=== PATIENT | female | born 1985 | race Caucasian/White ===

== ENCOUNTER 2016-12-08 12:19 | Emergency (ER) | payer SELFPAY ==
--- NOTE | 2016-12-08 12:34 | ER Document Report ---
ED Medical Screen (RME) - General Stated Complaint: ABDOMINAL PAIN Notes: night, vomiting and lethargy- resolved by monday stomach cramping that started last night, admits to nausea. patient is s/a with BF and does not use protection. LMP 10/07/16 I have greeted and performed a rapid initial assessment of this patient. A comprehensive ED assessment and evaluation of the patient, analysis of test results and completion of the medical decision making process will be conducted by additional ED providers. - Related Data Allergies/Adverse Reactions: Penicillins Allergy (Verified 12/08/16 12:35)
[2016-12-08 12:57] LABS: ABSOLUTE BASOPHILS # (AUTO) 0.1 10^3/uL (0.0-0.2); ABSOLUTE EOSINOPHILS # (AUTO) 0.2 10^3/uL (0.0-0.6); ABSOLUTE LYMPHOCYTES (AUTO) 2.2 10^3/uL (0.5-4.7); ABSOLUTE MONOCYTES (AUTO) 0.6 10^3/uL (0.1-1.4); ABSOLUTE NEUT (AUTO) 6.5 10^3/uL (1.7-8.2); BASOPHILS % (AUTO) 0.5 % (0-2); EOSINOPHILS % (AUTO) 2.4 % (0-6); HEMATOCRIT 36.4 % (36.0-47.0); HEMOGLOBIN 12.1 g/dL (12.0-15.5); HGB HCT DIFFERENCE -0.1; LYMPHOCYTES % (AUTO) 23.3 % (13-45); MEAN CORPUSCULAR HEMOGLOBIN 27.4 pg (27.0-33.4); MEAN CORPUSCULAR HGB CONC 33.2 g/dL (32.0-36.0); MEAN CORPUSCULAR VOLUME 82 fl (80-97); MONOCYTES % (AUTO) 6.1 % (3-13); RED BLOOD COUNT 4.42 10^6/uL (3.72-5.28); RED CELL DISTRIBUTION WIDTH 13.4 % (11.5-14.0); SEGMENTED NEUTROPHILS % (AUTO) 67.7 % (42-78); WHITE BLOOD COUNT 9.7 10^3/uL (4.0-10.5)
[2016-12-08 13:04] LABS: APPEARANCE,URINE CLEAR; BILIRUBIN,URINE NEGATIVE (NEGATIVE); GLUCOSE, URINE NEGATIVE (NEGATIVE); KETONES,URINE NEGATIVE (NEGATIVE); LEUKOCYTE ESTERASE,URINE NEGATIVE (NEGATIVE); NITRITE,URINE NEGATIVE (NEGATIVE); PROTEIN,URINE NEGATIVE (NEGATIVE); URINE SPECIFIC GRAVITY 1.001; UROBILINOGEN,URINE NEGATIVE mg/dL (<2.0)
[2016-12-08 13:09] LABS: ALANINE AMINOTRANSFERASE 55 U/L (9-52); ALBUMIN 3.9 g/dL (3.5-5.0); ALKALINE PHOSPHATASE 98 U/L (38-126); ANION GAP 12 (5-19); ASPARTATE AMINO TRANSFERASE 36 U/L (14-36); BILIRUBIN,TOTAL 0.4 mg/dL (0.2-1.3); BLOOD UREA NITROGEN 8 mg/dL (7-20); CALCIUM 9.2 mg/dL (8.4-10.2); CARBON DIOXIDE 24 mmol/L (22-30); CHLORIDE 104 mmol/L (98-107); CREATININE RESULT 0.62 mg/dL (0.52-1.25); GLUCOSE 100 mg/dL (75-110); LIPASE 232.9 U/L (23-300); POTASSIUM 4.5 mmol/L (3.6-5.0); SODIUM 139.8 mmol/L (137-145); TOTAL PROTEIN 7.6 g/dL (6.3-8.2)
[2016-12-08] MEDS ORDERED: NORMAL SALINE 1000 ML 2,000 ML IV ONE (14:34)
[2016-12-08] MEDS ORDERED: ONDANSETRON 4 MG TAB.RAPDIS PO ONE (14:48)
[2016-12-08] MEDS ORDERED: MORPHINE SULFATE 10 MG/ML INJ IV ONE (16:14)
[2016-12-08] MEDS ORDERED: METOCLOPRAMIDE HCL INJ/PF 10 MG/2 ML SDV IV ONE (16:14)
--- NOTE | 2016-12-08 16:25 | ER Document Report ---
Addendum entered and electronically signed by CIERRA MONTES DE OCA PA 12/08/16 20:42: Course - Re-evaluation Re-evalutation: 12/08/16 20:39 On reevaluation patient is well-appearing, abdominal exam is unremarkable with only very mild generalized tenderness, no guarding. CT of the abdomen and pelvis with IV and oral contrast was performed and reviewed, this shows mild retroperitoneal adenopathy, mild splenomegaly, no emergent concerning abnormalities. I did discuss the findings with patient in detail, patient was provided with a copy of this, patient states that she has plans to follow-up with primary care after she receives her insurance, states she will follow-up for monitoring and additional workup of these findings. Most likely these findings are secondary to patient's recent illness, patient will be treated symptomatically at this time, patient advised of return precautions in detail, patient states understanding and agreement. Patient is very well-appearing at discharge, requesting to leave so she can eat because she states she is hungry. - Vital Signs Vital signs: Temp Pulse Resp BP Pulse Ox 97.7 F 70 20 136/91 H 99 12/08/16 12:36 12/08/16 12:36 12/08/16 12:36 12/08/16 12:36 12/08/16 12:36 - Laboratory Result Diagrams: 12/08/16 12:45 12/08/16 12:25 Laboratory results interpreted by me: 12/08/16 12:25 ALT 55 H Addendum entered and electronically signed by CIERRA MONTES DE OCA PA 12/08/16 20:39: Discharge - Discharge Clinical Impression: Abdominal pain Qualifiers: Abdominal location: periumbilical Qualified Code(s): R10.33 - Periumbilical pain Condition: Good Disposition: HOME, SELF-CARE Additional Instructions: No surgical or emergent abnormality is noted on your workup or imaging. Imaging shows some swollen lymph nodes and a slightly enlarged spleen, this is most likely because of your recent illness, however this should be followed by additional monitoring by primary care. Please take your imaging report with you and follow-up with primary care. Take Phenergan for nausea, take Pepcid for upper abdominal symptoms, take the pain medication [place] if needed for pain. Please return to the emergency department immediately for any concerning or worsening symptoms including uncontrollable vomiting, abdominal swelling, severe abdominal pain, etc. Prescriptions: Famotidine [Pepcid 20 mg Tablet] 20 mg PO BID #14 tablet Hydrocodone/Acetaminophen [[place] 5-325 mg Tablet] 1 - 2 tab PO ASDIR #12 tablet Promethazine HCl [Phenergan 25 mg Tablet] 1 - 2 tab PO Q6H PRN #20 tablet PRN Reason: Forms: Return to Work Original Note: ED GI/ - General Chief Complaint: Abdominal Pain Stated Complaint: ABDOMINAL PAIN Time seen by provider: 14:40 Mode of Arrival: Ambulatory Information source: Patient Notes: 31-year-old female complaining of left pelvic lower quadrant pain which was worse when she sat. Last night it was very sharp in the evening then she went to sleep. when she woke up this morning she was having superior periUmbilical burning pain, vomit once. No fever. She does have nausea with the pain. No dysuria frequency or urgency. She had a normal bowel movement this morning without blood or black discoloration History of partial cholecystectomy 2 years ago. She had pain in the right upper quadrant one year ago and was told that she had a stone. No chest pain or shortness of breath. No history of Crohn's, colitis, or diverticulitis. The labs have already been resulted before I walked in the room and they're negative including a lipase. Last week she had vomiting illness but was well sat-monday. TRAVEL OUTSIDE OF THE [place] IN LAST 30 DAYS: No - Related Data Allergies/Adverse Reactions: Penicillins Allergy (Verified 12/08/16 12:35) Past Medical History - General Information source: Patient - Social History Smoking Status: Never Smoker Chew tobacco use (# tins/day): No Frequency of alcohol use: None Drug Abuse: None Lives with: Parents Family History: Reviewed & Not Pertinent Patient has suicidal ideation: No Patient has homicidal ideation: No Renal/ Medical History: Denies: Hx Peritoneal Dialysis Past Surgical History: Reports: Hx Cholecystectomy - Partial, left some of it there and states it is still functioning - Immunizations Hx Diphtheria, Pertussis, Tetanus Vaccination: Yes Review of Systems - Review of Systems Constitutional: No symptoms reported EENT: No symptoms reported Cardiovascular: No symptoms reported Respiratory: No symptoms reported Gastrointestinal: See HPI Genitourinary: No symptoms reported Female Genitourinary: No symptoms reported Musculoskeletal: No symptoms reported Skin: No symptoms reported Hematologic/Lymphatic: No symptoms reported Neurological/Psychological: No symptoms reported Physical Exam - Vital signs Vitals: Temp Pulse Resp BP Pulse Ox 97.7 F 70 20 136/91 H 99 12/08/16 12:36 12/08/16 12:36 12/08/16 12:36 12/08/16 12:36 12/08/16 12:36 Interpretation: Normal - General General appearance: Appears well, Alert In distress: None - HEENT Head: Normocephalic, Atraumatic Eyes: Normal Conjunctiva: Normal Pupils: PERRL Tympanic membrane: Normal Mucous membranes: Normal Pharynx: Normal Neck: Supple. No: Lymphadenopathy - Respiratory Respiratory status: No respiratory distress Chest status: Nontender Breath sounds: Normal Chest palpation: Normal - Cardiovascular Rhythm: Regular Heart sounds: Normal auscultation Murmur: No - Abdominal Inspection: Normal Distension: No distension Bowel sounds: Normal Tenderness: Tender - superior periumbilical. No: Guarding, Rebound Organomegaly: No organomegaly. No: Hepatomegaly, Splenomegaly - Back Back: Normal, Nontender. No: CVA tenderness - Extremities General upper extremity: Normal inspection, Nontender, Normal color, Normal ROM , Normal temperature General lower extremity: Normal inspection, Nontender, Normal color, Normal ROM , Normal temperature, Normal weight bearing. No: Bc's sign - Neurological Neuro grossly intact: Yes Cognition: Normal Orientation: AAOx4 [place] Coma Scale Eye Opening: Spontaneous [place] Coma Scale Verbal: Oriented Jose Roberto Coma Scale Motor: Obeys Commands [place] Coma Scale Total: 15 Speech: Normal Motor strength normal: LUE, RUE, LLE, RLE Sensory: Normal - Psychological Associated symptoms: Normal affect, Normal mood - Skin Skin Temperature: Warm Skin Moisture: Dry Skin Color: Normal Course - Re-evaluation Re-evalutation: 12/08/16 16:20 I have consulted with the supervisory physician per [facility] Guidelines., dr. mcknight. OK to order the CT scan, pt and spouse were wanting imaging to figue out what this is.. She continues to hurt, IV fluid did not help. Tender superior periumbilical and LLQ. - Vital Signs Vital signs: Temp Pulse Resp BP Pulse Ox 97.7 F 70 20 136/91 H 99 12/08/16 12:36 12/08/16 12:36 12/08/16 12:36 12/08/16 12:36 12/08/16 12:36 - Laboratory Result Diagrams: 12/08/16 12:45 12/08/16 12:25 Laboratory results interpreted by me: 12/08/16 12:25 ALT 55 H - Transfer of Care Care transferred to following provider: Alessandro GAITAN at 1900. Report at the bedside. Discharge - Discharge Clinical Impression: Abdominal pain Qualifiers: Abdominal location: periumbilical Qualified Code(s): R10.33 - Periumbilical pain Condition: Good Disposition: HOME, SELF-CARE
[2016-12-08] MEDS ORDERED: HYDROCODONE/ACETAMINOPHEN 5-325 MG 6 TAB/DSPK PO PRN (20:35)
[2016-12-08 21:32] VITALS: BP 122/72
== END 2016-12-08 20:50 | disposition home or self-care (01) ==
LOC: ER 12:19
DX: R10.33 Periumbilical pain (principal)
CPT/HCPCS: 99284; 96374; 96375; 36415; 83690; 85025; 81025; 80053; 81001; 74177; S0119; J2765; J2270; J7030

== ENCOUNTER 2017-09-18 07:13 | Emergency (ER) | payer BC ==
[2017-09-18 07:22] VITALS: BP 139/86
[2017-09-18] MEDS ORDERED: LIDOCAINE 2% VISCOUS SOLN 20 ML UDCUP PO ONE (08:20)
[2017-09-18] MEDS ORDERED: MAG HYDROX/AL HYDROX/SIMETH SUSP 30 ML UDCUP PO ONE (08:20)
[2017-09-18] MEDS ORDERED: METOCLOPRAMIDE HCL INJ/PF 10 MG/2 ML SDV IV ONE (08:20)
[2017-09-18 09:02] LABS: ABSOLUTE BASOPHILS # (AUTO) 0.1 10^3/uL (0.0-0.2); ABSOLUTE EOSINOPHILS # (AUTO) 0.1 10^3/uL (0.0-0.6); ABSOLUTE LYMPHOCYTES (AUTO) 2.3 10^3/uL (0.5-4.7); ABSOLUTE MONOCYTES (AUTO) 0.6 10^3/uL (0.1-1.4); ABSOLUTE NEUT (AUTO) 11.2 10^3/uL (1.7-8.2); BASOPHILS % (AUTO) 0.4 % (0-2); EOSINOPHILS % (AUTO) 0.5 % (0-6); HEMATOCRIT 43.8 % (36.0-47.0); HEMOGLOBIN 15.1 g/dL (12.0-15.5); HGB HCT DIFFERENCE 1.5; LYMPHOCYTES % (AUTO) 15.9 % (13-45); MEAN CORPUSCULAR HGB CONC 34.4 g/dL (32.0-36.0); MEAN CORPUSCULAR VOLUME 84 fl (80-97); MONOCYTES % (AUTO) 4.4 % (3-13); RED BLOOD COUNT 5.21 10^6/uL (3.72-5.28); RED CELL DISTRIBUTION WIDTH 14.4 % (11.5-14.0); SEGMENTED NEUTROPHILS % (AUTO) 78.8 % (42-78); WHITE BLOOD COUNT 14.2 10^3/uL (4.0-10.5)
[2017-09-18 09:50] LABS: ANION GAP 14 (5-19); BLOOD UREA NITROGEN 10 mg/dL (7-20); CALCIUM 9.4 mg/dL (8.4-10.2); CARBON DIOXIDE 26 mmol/L (22-30); CHLORIDE 101 mmol/L (98-107); CREATININE RESULT 0.68 mg/dL (0.52-1.25); GLUCOSE 137 mg/dL (75-110); POTASSIUM 3.8 mmol/L (3.6-5.0)
[2017-09-18 09:51] LABS: AMORPHOUS SEDIMENT,URINE TRACE /HPF; APPEARANCE,URINE CLOUDY; BILIRUBIN,URINE NEGATIVE (NEGATIVE); GLUCOSE, URINE NEGATIVE (NEGATIVE); KETONES,URINE NEGATIVE (NEGATIVE); LEUKOCYTE ESTERASE,URINE NEGATIVE (NEGATIVE); NITRITE,URINE NEGATIVE (NEGATIVE); PROTEIN,URINE NEGATIVE (NEGATIVE); URINE SPECIFIC GRAVITY 1.017; UROBILINOGEN,URINE NEGATIVE mg/dL (<2.0)
[2017-09-18 09:51] LABS: ALANINE AMINOTRANSFERASE 53 U/L (9-52); ALBUMIN 4.8 g/dL (3.5-5.0); ALKALINE PHOSPHATASE 110 U/L (38-126); ASPARTATE AMINO TRANSFERASE 50 U/L (14-36); BILIRUBIN,DIRECT 0.4 mg/dL (0.0-0.4); BILIRUBIN,TOTAL 0.6 mg/dL (0.2-1.3)
[2017-09-18 09:52] LABS: LIPASE 91.2 U/L (23-300); TOTAL PROTEIN 8.7 g/dL (6.3-8.2)
[2017-09-18] MEDS ORDERED: MORPHINE SULFATE 10 MG/ML INJ IV ONE ×2 (10:01→11:50)
--- NOTE | 2017-09-18 11:17 | RADIOLOGY REPORT (SQ) ---
EXAM DESCRIPTION: CT ABD/PELVIS WITH IV ONLY COMPLETED DATE/TIME: 09/18/2017 10:46 am REASON FOR STUDY: LUQ pain COMPARISON: 12/08/2016 TECHNIQUE: CT scan of the abdomen and pelvis performed using helical scanning technique with dynamic intravenous contrast injection. No oral contrast. Images reviewed with lung, soft tissue, and bone windows. Reconstructed coronal and sagittal MPR images reviewed. Delayed images for evaluation of the urinary system also acquired. All images stored on PACS. All CT scanners at this facility use dose modulation, iterative reconstruction, and/or weight based d osing when appropriate to reduce radiation dose to as low as reasonably achievable (ALARA). [facility]: Dose Right [facility]: CareDose [facility]: Dose Right [facility]: Teradose 4D [facility]: [email or web address] CONTRAST TYPE AND DOSE: contrast/concentration: Isovue 370.00 mg/ml; Total Contrast Delivered: 100.0 ml; Total Saline Delivered: 72.0 ml RENAL FUNCTION: Creatinine 0.7 BUN 10 RADIATION DOSE: Up-to-date CT equipment and radiation dose reduction techniques were employed. CTDIv ol: 17.4 - 20.0 mGy. DLP: 2100 mGy-cm.. LIMITATIONS: None. FINDINGS: LOWER CHEST: No significant findings. No nodules or infiltrates. LIVER: Normal size. No masses. No dilated ducts. SPLEEN: Normal size. No focal lesions. PANCREAS: No masses. No significant calcifications. No adjacent inflammation or peripancreatic fluid collections. Pancreatic duct not dilated. GALLBLADDER: Surgically absent. ADRENAL GLANDS: No significant masses or asymmetry. RIGHT KIDNEY AND URETER: No solid masses. No significant calcifications. No hydronephrosis or hyd roureter. LEFT KIDNEY AND URETER: No solid masses. No significant calcifications. No hydronephrosis or hydr oureter. AORTA AND VESSELS: No aneurysm. No dissection. Renal arteries, SMA, celiac without stenosis. RETROPERITONEUM: There is mild periaortic adenopathy. This appears to be stable. BOWEL AND PERITONEAL CAVITY: There are diverticula scattered through the colon, most numerous in kaur sverse colon. No acute inflammatory changes are seen APPENDIX: Normal. PELVIS: No mass. No free fluid. Normal bladder. ABDOMINAL WALL: No masses. No hernias. BONES: No significant or acute findings. OTHER: No other significant finding. IMPRESSION: 1. Diverticulosis coli. 2. Mild periaortic adenopathy that is stable. 3. There are no findings that explain the patient's pain. TECHNICAL DOCUMENTATION: JOB ID: [id number] Quality ID # [id number]: Final reports with documentation of one or more dose reduction techniques (e.g., Au tomated exposure control, adjustment of the mA and/or kV according to patient size, use of iterative reconstruction technique) 2010 [employer]- All Rights Reserved
--- NOTE | 2017-09-18 11:49 | ER Document Report ---
ED General - General Chief Complaint: Abdominal Pain Stated Complaint: ABDOMINAL PAIN Time Seen by Provider: 09/18/17 07:36 Mode of Arrival: Ambulatory Information source: Patient, Relative Notes: 32-year-old female history of gastric reflux ulcers presents with complaints of left upper quadrant abdominal pain. Patient notes she is on Nexium denies any fevers or chills denies any diarrhea. Patient does admit to nausea vomiting. Patient denies any pain anywhere else except the left upper quadrant, she denies a history of pancreatitis TRAVEL OUTSIDE OF THE [place] IN LAST 30 DAYS: No - HPI Onset: Just prior to arrival Onset/Duration: Sudden Quality of pain: No pain Severity: Mild Pain Level: 1 Associated symptoms: Nausea, Vomiting Exacerbated by: Denies Relieved by: Denies Similar symptoms previously: Yes Recently seen / treated by doctor: No - Related Data Allergies/Adverse Reactions: Penicillins Allergy (Verified 12/08/16 12:35) Past Medical History - Social History Smoking Status: Never Smoker Cigarette use (# per day): No Chew tobacco use (# tins/day): No Smoking Education Provided: No Family History: Reviewed & Not Pertinent Renal/ Medical History: Denies: Hx Peritoneal Dialysis Past Surgical History: Reports: Hx Cholecystectomy - Partial, left some of it there and states it is still functioning - Immunizations Hx Diphtheria, Pertussis, Tetanus Vaccination: Yes Review of Systems - Review of Systems Notes: REVIEW OF SYSTEMS: CONSTITUTIONAL : Denies fever, chills, or sweats. Denies recent illness. EENT: Denies eye, ear, throat, or mouth pain or symptoms. Denies nasal or sinus congestion or discharge. Denies throat, tongue, or mouth swelling or difficulty swallowing. CARDIOVASCULAR: Denies chest pain. Denies palpitations or racing or irregular heart beat. Denies ankle edema. RESPIRATORY: Denies cough, cold, or chest congestion. Denies shortness of breath, difficulty breathing, or wheezing. GASTROINTESTINAL: abd pain left upepr quadrant GENITOURINARY: Denies difficulty urinating, painful urination, burning, frequency, blood in urine, or discharge. FEMALE GENITOURINARY: Denies vaginal bleeding, heavy or abnormal periods, irregular periods. Denies vaginal discharge or odor. MUSCULOSKELETAL: Denies back or neck pain or stiffness. Denies joint pain or swelling. SKIN: Denies rash, lesions or sores. HEMATOLOGIC : Denies easy bruising or bleeding. LYMPHATIC: Denies swollen, enlarged glands. NEUROLOGICAL: Denies confusion or altered mental status. Denies passing out or loss of consciousness. Denies dizziness or lightheadedness. Denies headache. Denies weakness or paralysis or loss of use of either side. Denies problems with gait or speech. Denies sensory loss, numbness, or tingling. Denies seizures. PSYCHIATRIC: Denies anxiety or stress. Denies depression, suicidal ideation, or homicidal ideation. ALL OTHER SYSTEMS REVIEWED AND NEGATIVE. PHYSICAL EXAMINATION: GENERAL: Well-appearing, well-nourished and in mild distress HEAD: Atraumatic, normocephalic. EYES: Pupils equal round and reactive to light, extraocular movements intact, conjunctiva are normal. ENT: Nares patent, oropharynx clear without exudates. Moist mucous membranes. NECK: Normal range of motion, supple without lymphadenopathy LUNGS: Breath sounds clear to auscultation bilaterally and equal. No wheezes rales or rhonchi. HEART: Regular rate and rhythm without murmurs ABDOMEN: Soft,tender i nthe LUQ , no rebound or guarding Female : deferred Musculoskeletal: Normal range of motion, no pitting or edema. No cyanosis. NEUROLOGICAL: Cranial nerves grossly intact. Normal speech, normal gait. Normal sensory, motor exams PSYCH: Normal mood, normal affect. SKIN: Warm, Dry, normal turgor, no rashes or lesions noted. Dictation was performed using [employer] voice recognition software Physical Exam - Vital signs Vitals: Temp Pulse Resp BP Pulse Ox 97.4 F 57 L 20 139/86 H 100 09/18/17 07:17 09/18/17 07:17 09/18/17 07:17 09/18/17 07:17 09/18/17 07:17 Course - Re-evaluation Re-evalutation: 09/18/17 16:49 patietns labs and imaging noted no significant abnormality, pt given pain control nausea control and resting comfortably, I did watch her in the ED for a few hours and noted she was able to hydrate. ct noted diverticulitis which was reported to the patient Patient and family member happy with discharge After performing a Medical Screening Examination, I estimate there is LOW risk for ACUTE APPENDICITIS, BOWEL OBSTRUCTION, ACUTE CHOLECYSTITIS, PERFORATED DIVERTICULITIS, INCARCERATED HERNIA, PANCREATITIS, PELVIC INFLAMMATORY DISEASE, PERFORATED ULCER, ECTOPIC , or TUBO-OVARIAN ABSCESS, thus I consider the discharge disposition reasonable. Also, there is no evidence or peritonitis , sepsis, or toxicity. I have reevaluated this patient multiple times and no significant life threatening changes are noted. The patient and I have discussed the diagnosis and risks, and we agree with discharging home with close follow-up with the understanding that symptoms and presentations can change. We also discussed returning to the Emergency Department immediately if new or worsening symptoms occur. We have discussed the symptoms which are most concerning (e.g., bloody stool, fever, changing or worsening pain, vomiting) that necessitate immediate return. - Vital Signs Vital signs: Temp Pulse Resp BP Pulse Ox 97.4 F 57 L 20 139/86 H 100 09/18/17 07:17 09/18/17 07:17 09/18/17 07:17 09/18/17 07:17 09/18/17 07:17 - Laboratory Result Diagrams: 09/18/17 08:52 09/18/17 08:52 Laboratory results interpreted by me: 09/18/17 09/18/17 09/18/17 08:52 08:52 09:10 WBC 14.2 H RDW 14.4 H Seg Neutrophils % 78.8 H Absolute Neutrophils 11.2 H Glucose 137 H AST 50 H ALT 53 H Total Protein 8.7 H Urine Blood SMALL H - Diagnostic Test Radiology reviewed: Image reviewed, Reports reviewed - diverticulosis Discharge - Discharge Clinical Impression: Abdominal pain Qualifiers: Abdominal location: left upper quadrant Qualified Code(s): R10.12 - Left upper quadrant pain Nausea & vomiting Qualifiers: Vomiting type: unspecified Vomiting Intractability: non-intractable Qualified Code(s): R11.2 - Nausea with vomiting, unspecified Condition: Stable Disposition: HOME, SELF-CARE Instructions: Abdominal Pain ([facility]) Prescriptions: Famotidine [Pepcid 20 mg Tablet] 20 mg PO DAILY #30 tablet Hydrocodone/Acetaminophen [[place] 5-325 mg Tablet] 1 tab PO Q6 #14 tablet Metoclopramide HCl [Reglan 10 mg Tablet] 1 - 2 tab PO ASDIR PRN #25 tablet PRN Reason: Forms: Return to Work Referrals: ARIANNA MANUEL MD [ACTIVE STAFF] - Follow up tomorrow
== END 2017-09-18 12:25 | disposition home or self-care (01) ==
LOC: ER 07:13
DX: R10.12 Left upper quadrant pain (principal); R11.2 Nausea with vomiting, unspecified; Z88.0 Allergy status to penicillin; Z90.49 Acquired absence of other specified parts of digestive tract
CPT/HCPCS: 96376; 99284; 96374; 96375; 36415; 84702; 83690; 85025; 81025; 80053; 81001; 74177; J3490; J2765; J2270

== ENCOUNTER → 2018-06-05 | Outpatient (CLI) | payer BC, OTHER ==
--- NOTE | 2018-06-05 13:47 | RADIOLOGY REPORT (SQ) ---
EXAM DESCRIPTION: HYSTERO CATH/INJECTION COMPLETED DATE/TIME: 06/05/2018 1:29 pm REASON FOR STUDY: INFERTILITY (N97.0) N97.0 FEMALE INFERTILITY ASSOCIATED WITH ANOVULATION COMPARISON: None. PROCEDURE: PRE-PROCEDURE: Procedure was explained to the patient. She was told to expect cramping du ring the procedure, and possible spotting post procedure. PROCEDURE: The cervix was prepped in sterile fashion. Under direct visual inspection, the cervix was cannulated with the hysterosalpingogram catheter and contrast injected. TECHNIQUE: Temporal fluoroscopic images acquired during the procedure stored to PACS. FLUOROSCOPY TIME: 60 seconds 12 images saved to PACS. LIMITATIONS: None. FINDINGS: UTERUS: No identified anomalies. No synechia. RIGHT ADNEXA: The right fallopian tube opacified but there was no spill of contrast into the peritone al cavity. LEFT ADNEXA: The left fallopian tube did not opacify. POST PROCEDURE: The patient tolerated the procedure with no adverse effects. IMPRESSION: Occluded fallopian tubes. COMMENT: Shirlene WOLF was present during the entire procedure. Quality ID [id number]: Final reports for procedures using fluoroscopy that document radiation exposure maria m jose carlos, or exposure time and number of fluorographic images (if radiation exposure indices are not avail able) TECHNICAL DOCUMENTATION: JOB ID: [id number] [employer]- All Rights Reserved Reading location - IP/workstation name: [email or web address]
--- NOTE | 2018-06-05 15:08 | RADIOLOGY REPORT (SQ) ---
EXAM DESCRIPTION: HYSTEROSALPINGOGRAM COMPLETE DATE/TIME: 06/05/2018 1:29 pm REASON FOR STUDY: INFERTILITY (N97.0) N97.0 FEMALE INFERTILITY ASSOCIATED WITH ANOVULATION FINDINGS: Please see combined report for performance of procedure and radiologic supervision and int erpretation. IMPRESSION: Please see combined report for performance of procedure and radiologic supervision and i nterpretation. Reading location - IP/workstation name: [email or web address]
== END ==
LOC: RAD 12:31
PROVIDERS: ATTEND Obstetrics & Gynecology
DX: N97.0 Female infertility associated with anovulation (principal)
CPT/HCPCS: 58340; 74740